=== PATIENT | male | born 1975 | race Caucasian/White ===

== ENCOUNTER 2017-05-22 21:31 | Emergency (ER) | payer BC ==
[2017-05-22 21:38] VITALS: BP 131/97
--- NOTE | 2017-05-22 21:46 | ED ---
Upper Extremity Pain - HPI Summary HPI Summary: 41M presents with right wrist injury today. He hurt it playing basketball. He states he fell onto his outstretched hand. He has pain on the radial aspect of his wrist. He has tried wrapping it and taking ibuprofen but it has not gotten better. He denies any numbness or tingling. He denies any previous injury to the area. He is right handed. He works as an editor publications. - History of Current Complaint Chief Complaint: UCUpperExtremity Stated Complaint: WRIST INJURY Time Seen by Provider: 05/22/17 21:40 - Allergies/Home Medications Allergies/Adverse Reactions: Allergies Allergy/AdvReac Type Severity Reaction Status Date / Time No Known Allergies Allergy Verified 05/22/17 21:38 Home Medications: Home Medications NK [No Home Medications Reported] 05/22/17 [History Confirmed 05/22/17] PMH/Surg Hx/FS Hx/Imm Hx Endocrine/Hematology History: Denies: Hx Anticoagulant Therapy Respiratory History: Reports: Hx Asthma - allergy induced - Surgical History Surgery Procedure, Year, and Place: Hydrocele removal Infectious Disease History: No Infectious Disease History: Denies: Traveled Outside the [place] in Last 30 Days - Family History Known Family History: Positive: Hypertension - Social History Alcohol Use: Weekly Substance Use Type: Reports: None Smoking Status (MU): Never Smoked Tobacco Review of Systems Negative: Fever Negative: Chest Pain Negative: Shortness Of Breath Positive: Myalgia - right wrist pain All Other Systems Reviewed And Are Negative: Yes Physical Exam Triage Information Reviewed: Yes Vital Signs On Initial Exam: Initial Vitals Temp Pulse Resp BP Pulse Ox 97.6 F 85 16 131/97 97 05/22/17 21:33 05/22/17 21:33 05/22/17 21:33 05/22/17 21:33 05/22/17 21:33 Vital Signs Reviewed: Yes Appearance: Positive: Well-Appearing Skin: Positive: Warm, Dry Head/Face: Positive: Normal Head/Face Inspection Eyes: Positive: Normal, Conjunctiva Clear Respiratory/Lung Sounds: Positive: Clear to Auscultation, Breath Sounds Present Cardiovascular: Positive: Normal, RRR Musculoskeletal: Positive: Limited @ - right wrist, Edema Right - mild, Other - good pulses, capillary refill<2 secs, tenderness over right wrist on radial aspect, neg snuff box tenderness, Neurological: Positive: Normal Psychiatric: Positive: Normal Diagnostics - Vital Signs Vital Signs Temp Pulse Resp BP Pulse Ox 05/22/17 21:33 97.6 F 85 16 131/97 97 - Laboratory Lab Statement: Any lab studies that have been ordered have been reviewed, and results considered in the medical decision making process. - Radiology wrist Xray Interpretation: No Acute Changes Radiology Interpretation Completed By: Radiologist Course/Dx - Course Course Of Treatment: 41M presents with right wrist injury today. He hurt it playing basketball. He states he fell onto his outstretched hand. He has pain on the radial aspect of his wrist. He has tried wrapping it and taking ibuprofen but it has not gotten better. He denies any numbness or tingling. He denies any previous injury to the area. He is right handed. He works as an editor publications. on exam tenderness over radial aspect of wrist. neurovascular intact. no snuff box tenderness. xray normal. will treat as sprain with RICE. patient understand and agrees with plan. - Diagnoses Differential Diagnosis/HQI/PQRI: Positive: Fracture (Closed), Strain, Sprain Provider Diagnoses: Right wrist injury Discharge - Discharge Plan Condition: Good Disposition: HOME Patient Education Materials: Wrist Sprain (ED) Referrals: Jackson Mallory MD [Primary Care Provider] - Additional Instructions: Take Tylenol or ibuprofen every 6 hours as needed for pain Apply ice, rest, elevate Keep olga on area Follow up with primary care physician within 5 days Return to ED if develop any new or worsening symptoms
--- NOTE | 2017-05-22 21:55 | RAD ---
Indication: Indication: Right wrist pain. 3 views of the wrist demonstrates no fracture. No other bone or joint abnormality is identified. IMPRESSION: NO FRACTURE OF THE WRIST IS NOTED.
== END 2017-05-22 22:00 | disposition home or self-care (01) ==
LOC: UCEAST 21:31
DX: S69.91XA Unspecified injury of right wrist, hand and finger(s), initial encounter (principal); W18.30XA Fall on same level, unspecified, initial encounter; Y93.67 Activity, basketball; Y92.310 Basketball court as the place of occurrence of the external cause; J45.909 Unspecified asthma, uncomplicated
CPT/HCPCS: 99211; G0463